=== PATIENT | male | born 1960 | race Caucasian/White ===

== ENCOUNTER 2020-08-04 11:05 | Inpatient (IN) | payer OTHER ==
[~2020-08-04] VITALS: Ht 170.2 cm; Wt 91.6 kg
--- NOTE | 2020-08-04 11:20 | NUR ---
PT BIB SELF C/O ABD PAIN SINCE MONDAY. STATES THAT HE WAS FEELING SOME SHARP PAIN 10/ ON LLQ. BUT HE SAYS THAT ITS NOT VERY PAINFUL NOW. VS CHECKED. AWAITING MD CROWDER.
[2020-08-04] MEDS ORDERED: IV NS 0.9% 1,000 ML BAG IV ONE (11:30)
--- NOTE | 2020-08-04 11:47 | NUR ---
PT OUT FOR CT
[2020-08-04 11:50] LABS: BILIRUBIN,URINE NEGATIVE (NEGATIVE); BLOOD, URINE SMALL Ery/uL (NEGATIVE); COLOR,URINE YELLOW (YELLOW); KETONES,URINE >=80 (NEGATIVE); LEUKOCYTE ESTERASE ,URINE TRACE (NEGATIVE); NITRITE, URINE NEGATIVE (NEGATIVE); PROTEIN,URINE NEGATIVE (NEGATIVE); UGLUCOSE NEGATIVE (NEGATIVE); UROBILINOGEN,URINE 0.2 EU/dL (0.2)
[2020-08-04 11:52] LABS: APPEARANCE,URINE CLEAR (CLEAR)
[2020-08-04 11:53] LABS: BACTERIA,URINE Rare /HPF (None Seen); RBC,URINE 0-2 /HPF (0-2); SQUAMOUS EPITHELIAL CELL,UR Rare /HPF (None Seen)
[2020-08-04 12:06] LABS: BASOPHILS # (AUTO) 0.1 /CMM (0.0-0.2); BASOPHILS % (AUTO) 0.5 % (0.0-2.0); CALCIUM, SERUM 8.2 mg/dL (8.5-10.1); CREATININE 0.9 mg/dL (0.6-1.3); EOSINOPHILS % (AUTO) 0.3 % (0.0-6.0); HEMATOCRIT 43 % (39-51); HEMOGLOBIN 14.4 g/dL (13.5-17.5); LYMPHOCYTES # (AUTO) 1.3 /CMM (0.8-4.8); LYMPHOCYTES % (AUTO) 11.7 % (20.0-44.0); MEAN CORPUSCULAR HGB CONC 33 g/dl (31.0-36.0); MEAN CORPUSCULAR VOLUME 92 fL (80-96); MONOCYTES # (AUTO) 1.1 /CMM (0.1-1.30); MONOCYTES % (AUTO) 9.9 % (2.0-12.0); NEUTROPHILS # (AUTO) 8.8 /CMM (1.8-8.9); NEUTROPHILS % (AUTO) 77.6 % (43.0-81.0); PLATELET COUNT (AUTO) 267 /CMM (150-450); POTASSIUM 3.9 mmol/L (3.5-5.1); RED BLOOD CELL COUNT(AUTO) 4.72 MIL/uL (4.5-6.0); WHITE BLOOD COUNT (AUTO) 11.4 K/uL (4.3-11.0)
[2020-08-04 12:21] LABS: ALBUMIN 3.5 g/dL (3.4-5.0); BILIRUBIN,DIRECT 0.1 mg/dL (0.0-0.2); BILIRUBIN,TOTAL 0.6 mg/dL (0.2-1.0); TOTAL PROTEIN, SERUM 7.6 g/dL (6.4-8.2)
[2020-08-04] MEDS ORDERED: LEVO112T2 PO (12:42)
[2020-08-04] MEDS ORDERED: LEVOFLOXACIN 750 MG /D5W 150ML 150 ML IV ONE (12:55)
[2020-08-04] MEDS ORDERED: METRONIDAZOLE 500MG/ NS 100ML 100 ML IV ONE ×2 (12:55→13:00)
--- NOTE | 2020-08-04 13:11 | NUR ---
MOVE SHEET SUBMITTED AND CALLED FOR MS BED.
[2020-08-04] MEDS: LEVOFLOXACIN 750 MG /D5W 150ML 150 ML IV ONE ×2 (13:40→14:00)
--- NOTE | 2020-08-04 13:48 | NUR ---
CALLED EPIC PANEL FOR ADMISSION
--- NOTE | 2020-08-04 13:59 | NUR ---
[facility].
--- NOTE | 2020-08-04 14:52 | NUR ---
COVID SWAB DONE SENT TO LAB
[2020-08-04] MEDS ORDERED: MORPHINE SULFATE INJ 2 MG/ML DISP.SYRIN IV PRN (15:30)
[2020-08-04] MEDS ORDERED: ONDANSETRON HCL/PF 4 MG/2 ML VIAL IVP PRN (15:30)
--- NOTE | 2020-08-04 15:55 | NUR ---
LAB CALLED PT COVID-19 NEG (-)
--- NOTE | 2020-08-04 16:12 | NUR ---
REPORT GIVEN TO KRAIG ORELLANA FOR MAAME.
[2020-08-04 16:30] VITALS: BP 129/79
--- NOTE | 2020-08-04 16:30 | NUR ---
Report received from ESTEBAN Borja from ER. Patient arrived at the med surg unit at around 16:30. Patient is alert, awake and oriented x4. Patient able to make needs known. No s/s of distress or discomfort noted, no c/o pain, VS WNL BP 129/79, FL 95, Temp 98.3, O2 98% on room air. Patient stated he went to the ER from home for abdominal pain radiating to lower back, patient was dx with acute diverticulitis by MD. Per patient, pain scale is 3/10, no facial grimacing or moaning noted, pain alleviated by resting. Skin is intact, no injury noted, no skin breakdown. Patient with IV on let AC, 18 g, patent and intact, no s/s of infiltration noted. MD aware of patient's arrival to [facility], medication placed by MD, including VTE, noted and carried out, MD aware of patient's code status. Patient oriented to the facility and staff. Assisted with ADLs as needed. Linens changed. Fall precautions observed. Bed locked and in lowest position. Call light within reach.
--- NOTE | 2020-08-04 17:31 | NUR ---
Addendum: Patient's personal belongings listed in inventory list, signed by patient, belongings with patient.
--- NOTE | 2020-08-04 18:45 | NUR ---
Closing Notes: Patient in bed alert, and awake. No c/o pain , no SOB, no s/s of distress or discomfort. Assisted with ADLs. Patient able to turn and repositioned herself. Tolerated treatment and care well. Patient continuously monitored. Needs anticipated and attended. 1844 Patient c/o pain on abdomen, pain scale of 8/10 per patient, pt. requested pain medication, PRN pain medication given as ordered, tolerated well. Will continue to monitor patient. Fall precautions observed. bed locked and in lowest position. Call light within easy reach. VS WNL.
--- NOTE | 2020-08-04 19:22 | NUR ---
Patient reassessed for pain, per patient, pain reduced to 1/10. No changes in LOC noted. No s/s of distress or discomfort. Endorsed continuity of care to next shift.
--- NOTE | 2020-08-04 19:39 | NUR ---
MS RN OPENING NOTE: Patient in bed awake, alert, and oriented x4. Patient able to make needs known. Patient denies pain or discomfort at this time. Noted IV access on right AC 18 gauge, dry and intact, no redness, or infiltration. Safety precaution is in place, bed is in the lowest level, bed is locked, side rails x2 are up, and call light is within reach. Will continue to monitor.
[2020-08-04 20:00] VITALS: BP 129/73
[2020-08-04 20:46] VITALS: BP 129/73
[2020-08-04] MEDS: METRONIDAZOLE 500MG/ NS 100ML 500 MG in PREMIX 1 EA IV SCH (20:55)
[2020-08-05] MEDS: METRONIDAZOLE 500MG/ NS 100ML 500 MG in PREMIX 1 EA IV SCH ×3 (04:40→20:04)
--- NOTE | 2020-08-05 06:35 | NUR ---
MS RN CLOSING: Patient in bed sleeping comfortably. All needs met. Patient breathing well with no SOB or respiratory distress. Safety precaution in place, bed is in the lowest level, brakes are on, side rails x2 are up, and call light is within reach. Will endorse to next shift.
[2020-08-05 06:40] LABS: BASOPHILS % (AUTO) 0.4 % (0.0-2.0); EOSINOPHILS % (AUTO) 0.4 % (0.0-6.0); HEMATOCRIT 42 % (39-51); HEMOGLOBIN 13.9 g/dL (13.5-17.5); LYMPHOCYTES # (AUTO) 1.5 /CMM (0.8-4.8); LYMPHOCYTES % (AUTO) 13.3 % (20.0-44.0); MEAN CORPUSCULAR HGB CONC 33 g/dl (31.0-36.0); MEAN CORPUSCULAR VOLUME 92 fL (80-96); MONOCYTES # (AUTO) 1.2 /CMM (0.1-1.30); MONOCYTES % (AUTO) 10.8 % (2.0-12.0); NEUTROPHILS # (AUTO) 8.2 /CMM (1.8-8.9); NEUTROPHILS % (AUTO) 75.1 % (43.0-81.0); PLATELET COUNT (AUTO) 258 /CMM (150-450); RED BLOOD CELL COUNT(AUTO) 4.52 MIL/uL (4.5-6.0); WHITE BLOOD COUNT (AUTO) 10.9 K/uL (4.3-11.0)
[2020-08-05 07:13] LABS: THYROID STIMULATING HORMONE 0.917 uIU/mL (0.358-3.74)
[2020-08-05] MEDS: LEVOTHYROXINE SODIUM 112 MCG TABLET PO SCH (07:30)
--- NOTE | 2020-08-05 07:50 | NUR ---
MS RN OPENING NOTES RECEIVED PATIENT RESTING IN BED, A/O X4, AMBULATORY, WITH BRP, IV TO RT AC#18 G; SL. PT IS NPO, SKIN INTACT. ON RA, NO C/O SOB, NO ACUTE RESPIRATORY DISTRESS NOTED. NO C/O PAIN AT THIS TIME. BED AT LOWEST POSITION LOCKED WITH SIDE RAILS UP X 2. CALL LIGHT WITHIN REACH. WILL CONTINUE TO MONITOR PT THROUGHOUT SHIFT.
[2020-08-05 07:55] LABS: CALCIUM, SERUM 8.1 mg/dL (8.5-10.1); CREATININE 0.9 mg/dL (0.6-1.3); MAGNESIUM 2.2 mg/dL (1.8-2.4); PHOSPHORUS 3.6 mg/dL (2.5-4.9); POTASSIUM 3.8 mmol/L (3.5-5.1)
[2020-08-05 08:00] VITALS: BP 117/69
[2020-08-05] MEDS: PANTOPRAZOLE 40 MG VIAL IV SCH (08:38)
[2020-08-05] MEDS ORDERED: ACETAMINOPHEN 325 MG TABLET PO PRN (13:00)
[2020-08-05] MEDS: LEVOFLOXACIN 750 MG /D5W 150ML 750 MG in PREMIX 1 EA IV SCH (13:05)
[2020-08-05 16:00] VITALS: BP 116/65
--- NOTE | 2020-08-05 18:09 | NUR ---
MS RN CLOSING NOTES PATIENT RESTING COMFORTABLY IN BED, A/O X4, IN STABLE CONDITION. ON RA, NO C/O SOB, NO ACUTE RESPIRATORY DISTRESS NOTED. PT IS AMBULATORY WITH STABLE GAIN AND BRP. IV TO RT AC#18 G PATENT AND INTACT; SL . PT ON CLEAR LIQUID DIET. SKIN INTACT. BED AT LOWEST POSITION LOCKED WITH SIDE RAILS UP X 2. CALL LIGHT WITHIN REACH. WILL ENDORSE TO TELECOMMUNICATIONS ENGINEER.
--- NOTE | 2020-08-05 19:30 | NUR ---
MS ESTEBAN OPEN NOTES PATIENT IS WATCHING TV IN BED. A/O X4. ON RA, NO SOB/ ACUTE RESPIRATORY DISTRESS NOTED. PT DENIES ANY PAIN AT THE MOMENT. BED IS IN LOWEST LOCKED POSITION WITH SIDE RAILS UP X2, SEMI FOWLERS. CALL LIGHT IS WITHIN REACH. WILL CONTINUE TO MONITOR.
[2020-08-05 20:00] VITALS: BP 123/79
[2020-08-06] MEDS: METRONIDAZOLE 500MG/ NS 100ML 500 MG in PREMIX 1 EA IV SCH ×2 (04:47→12:15)
[2020-08-06 06:38] LABS: BASOPHILS % (AUTO) 0.5 % (0.0-2.0); HEMATOCRIT 42 % (39-51); HEMOGLOBIN 14.2 g/dL (13.5-17.5); LYMPHOCYTES # (AUTO) 1.4 /CMM (0.8-4.8); LYMPHOCYTES % (AUTO) 17.2 % (20.0-44.0); MEAN CORPUSCULAR HGB CONC 34 g/dl (31.0-36.0); MEAN CORPUSCULAR VOLUME 92 fL (80-96); MONOCYTES # (AUTO) 0.9 /CMM (0.1-1.30); MONOCYTES % (AUTO) 10.9 % (2.0-12.0); NEUTROPHILS # (AUTO) 5.7 /CMM (1.8-8.9); NEUTROPHILS % (AUTO) 70.4 % (43.0-81.0); PLATELET COUNT (AUTO) 272 /CMM (150-450); RED BLOOD CELL COUNT(AUTO) 4.54 MIL/uL (4.5-6.0)
--- NOTE | 2020-08-06 06:48 | NUR ---
MS RN CLOSE NOTES PATIENT IS WATCHING TV IN BED. A/O X4. ON RA, NO SOB/ ACUTE RESPIRATORY DISTRESS NOTED. IV IN R AC #18G IS PATENT AND INTACT, ALL DUE ANTIBIOTICS GIVEN. PT DENIES ANY PAIN AT THE MOMENT. PT IS ABLE TO AMBULATE. BED IS IN LOWEST LOCKED POSITION WITH SIDE RAILS UP X2, SEMI FOWLERS. CALL LIGHT IS WITHIN REACH. WILL ENDORSE TO AM NURSE.
[2020-08-06] MEDS: LEVOTHYROXINE SODIUM 112 MCG TABLET PO SCH (07:43)
--- NOTE | 2020-08-06 07:47 | NUR ---
MS RN OPENING SHIFT NOTES RECEIVED PATIENT RESTING IN BED, A/O X4, AMBULATORY, WITH BRP, IV TO RT AC#18 G, SKIN INTACT. ON RA, NO C/O SOB, NO ACUTE RESPIRATORY DISTRESS NOTED. NO C/O PAIN, STATES JUST FEELS GASSY. ON CLEAR LIQUID DIET. BED AT LOWEST POSITION LOCKED WITH SIDE RAILS UP X 2. CALL LIGHT WITHIN REACH. WILL CONTINUE TO MONITOR PT THROUGHOUT SHIFT.
[2020-08-06 08:00] VITALS: BP 133/79
[2020-08-06] MEDS: PANTOPRAZOLE 40 MG VIAL IV SCH (08:46)
--- NOTE | 2020-08-06 09:10 | NUR ---
MS RN NOTES PT C/O OF PAIN AT RT AC IV SITE. NOTED WITH SOME REDNESS. D/C IV TO RT AC. NEW IV SITE STARTED TO RT HAND #20G. FLUSHING WELL, PATENT AND INTACT, NO C/O PAIN, NO SWELLING OR REDNESS NOTED.
[2020-08-06] MEDS: LEVOFLOXACIN 750 MG /D5W 150ML 750 MG in PREMIX 1 EA IV SCH (13:28)
[2020-08-06 16:00] VITALS: BP 122/78
--- NOTE | 2020-08-06 16:06 | NUR ---
RN MS NOTES PT AWAKE, ALERT AND ORIENTED, WALKS WITH STEADY GAIT INSIDE HIS ROOM, DENIES PAIN, NOT IN DISTRESS, TOLERATES CURRENT DIET, IV ATB GIVEN ORDERED, SEEN BY DR. ADAMES, DISCHARGE ORDER GIVEN, DISCHARGE AND MEDICATION INSTRUCTIONS PROVIDED TO PT, VERBALIZED UNDERSTANDING, BELONGINGS ACCOUNTED FOR, NEW PRESCRIPTION PROVIDED, PT TO FOLLOW UP WITH HIS PRIMARY CARE PHYSICIAN, PT VERBALIZED UNDERSTANDING, ASSISTED TO HOSPITAL LOBBY, PICKED UP BY FAMILY, LEFT VIA PRIVATE CAR IN STABLE CONDITION.
== END 2020-08-06 16:00 | disposition home or self-care (01) | DRG 392 ==
LOC: ER 11:12 → MED 16:01
DX: K57.20 Diverticulitis of large intestine with perforation and abscess without bleeding (principal); D72.829 Elevated white blood cell count, unspecified; E03.9 Hypothyroidism, unspecified; Z79.890 Hormone replacement therapy
CPT/HCPCS: 36415; 80048-TC; 80061-TC; 80076-TC; 81000-TC; 83605-TC; 83690-TC; 83735-TC; 84100-TC; 84443-TC; 85025-TC; 87040-TC; 87081-TC; A4216; C9113; C9803; G0378; J1956; J2270; J7030; J7050